=== PATIENT | female | born 1990 | race Caucasian/White ===

== ENCOUNTER 2017-03-19 09:27 | Emergency (ER) | payer MEDICARE | END 2017-03-19 12:00 | disposition home or self-care (01) | LOC: ER1 09:27 | DX: B34.9 Viral infection, unspecified (principal); N39.0 Urinary tract infection, site not specified; R19.7 Diarrhea, unspecified; F17.200 Nicotine dependence, unspecified, uncomplicated | CPT/HCPCS: 81001; 84703; 87081; 87086; 87880; 96372; 99283; J1885 ==

== ENCOUNTER 2021-06-18 11:23 | Emergency (ER) | payer OTHER ==
[2021-06-18 12:15] LABS: HEMOGLOBIN 14.9 gm/dl (12.3-15.3); RED BLOOD COUNT 4.69 M/UL (4.00-5.10); WHITE BLOOD COUNT 6.1 K/UL (4.5-11.0)
[2021-06-18 12:26] LABS: BUN/CREATININE RATIO 17 (0-10)
[2021-06-18] MEDS ORDERED: IBU600 MG PO (13:24)
[2021-06-18] MEDS ORDERED: DOXYCYCLINE HY100 M2 PO (13:24)
[2021-06-18] MEDS ORDERED: CEPHALEXIN500 M1 PO (13:24)
== END 2021-06-18 14:32 | disposition home or self-care (01) ==
LOC: ER1 11:23
PROVIDERS: Physician Assistant
DX: N76.4 Abscess of vulva (principal); F17.200 Nicotine dependence, unspecified, uncomplicated
CPT/HCPCS: 56405; 80053; 83605; 85025; 87040; 87070; 87205; 99283; J0696; J3370; J7030

== ENCOUNTER 2021-06-19 02:09 | Emergency (ER) | payer OTHER ==
[~2021-06-19 02:09] MED LIST: CEPHALEXIN500 M1 PO; DOXYCYCLINE HY100 M2 PO; IBU600 MG PO
== END 2021-06-19 02:30 | disposition home or self-care (01) ==
LOC: ER1 02:09
DX: N76.4 Abscess of vulva (principal)
CPT/HCPCS: 99282